=== PATIENT | female | born 1990 | race Caucasian/White ===

== ENCOUNTER → 2017-05-17 | Outpatient (CLI) | payer MEDICAID | LOC: FIMAGING 08:29 | PROVIDERS: ATTEND Obstetrics & Gynecology | DX: O09.293 Supervision of pregnancy with other poor reproductive or obstetric history, third trimester (principal); O34.219 Maternal care for unspecified type scar from previous cesarean delivery; Z3A.33 33 weeks gestation of pregnancy ==